=== PATIENT | female | born 1970 | race Caucasian/White ===

== ENCOUNTER 2019-01-25 14:19 | Outpatient (CLI) | payer MEDICARE, MEDICAID ==
--- NOTE | 2019-01-25 16:07 | MMO ---
Bilateral MAMMO Bilat Diag DDI+FAZAL. CLINICAL HISTORY: Patient is 48 years old and is seen for diagnostic exam and lump or thickening in the right breast at 6 o'clock. The patient has the following family history of breast cancer: mother. The patient has no personal history of cancer. VIEWS: The views performed were: bilateral craniocaudal with tomosynthesis; bilateral mediolateral oblique with tomosynthesis; and bilateral mediolateral with tomosynthesis. FILMS COMPARED: The present examination has been compared to a prior imaging study performed at [facility] on 01/25/2019. MAMMOGRAM FINDINGS: The breasts are heterogeneously dense, which could obscure a lesion on mammography. There is a focal asymmetry with spiculated margins seen in the right breast at 6 o'clock. This corresponds to the region of palpable concern. In the left breast, there are no suspicious masses, calcifications or areas of architectural distortion. IMPRESSION: FOCAL ASYMMETRY IN THE RIGHT BREAST IS SUSPICIOUS. AN ULTRASOUND-GUIDED BREAST BIOPSY IS RECOMMENDED. RESULTS AND RECOMMENDATIONS DISCUSSED WITH THE PATIENT AND QUESTIONS ANSWERED. THE RESULTS OF THIS EXAM WERE SENT TO THE PATIENT. ACR BI-RADS Category 4 - Suspicious abnormality - biopsy should be considered MAMMOGRAPHY NOTE: 1. A negative mammogram report should not delay a biopsy if a dominant of clinically suspicious mass is present. 2. Approximately 10% to 15% of breast cancers are not detected by mammography. 3. Adenosis and dense breasts may obscure an underlying neoplasm. Reported by: MIRNA DRAKE MD Electonically Signed: [id number]
--- NOTE | 2019-01-25 16:14 | ULT ---
LIMITED RIGHT BREAST ULTRASOUND: 01/25/19 PROVIDED CLINICAL HISTORY: Right breast palpable abnormality. FINDINGS: Limited sonographic interrogation of the 5 o'clock position of the right breast in the region of pal pable concern was performed. There is an angulated, irregular hypoechoic mass with associated shadowi ng measuring approximately 9 mm in greatest dimension. IMPRESSION: BI-RADS 4: Suspicious Abnormality - Biopsy Should Be Considered Usually requires biopsy. Ultrasound guided biopsy is recommended. Results and recommendations discussed with the patient and q uestions answered. POS: OFF
== END 2019-01-25 14:20 | disposition home or self-care (01) ==
LOC: BICMAMMO 14:19
PROVIDERS: ATTEND Family Medicine
DX: N63.0 Unspecified lump in unspecified breast (principal); Z80.3 Family history of malignant neoplasm of breast
CPT/HCPCS: 76642; 77066; G0279

== ENCOUNTER → 2019-01-29 | Day surgery (SDC) | payer MEDICARE, MEDICAID ==
--- NOTE | 2019-01-29 13:42 | MMO ---
Right Breast MAMMO Unilat Diag DDI RT. CLINICAL HISTORY: Patient is 48 years old and is seen for breast biopsy. The patient has the following family history of breast cancer: mother. The patient has no personal history of cancer. VIEWS: The views performed were: right craniocaudal and right mediolateral oblique. FILMS COMPARED: The present examination has been compared to a prior imaging study performed at [facility] on 01/25/2019. MAMMOGRAM FINDINGS: The breast is heterogeneously dense, which could obscure a lesion on mammography. There is a biopsy clip seen in the right breast. This is adjacent to the posterior aspcect of the distortion. IMPRESSION: BIOPSY CLIP IN THE RIGHT BREAST IS CONFIRMED UTILIZING POST PROCEDURE MAMMOGRAM. THE RESULTS OF THIS EXAM WERE SENT TO THE PATIENT. MAMMOGRAPHY NOTE: 1. A negative mammogram report should not delay a biopsy if a dominant of clinically suspicious mass is present. 2. Approximately 10% to 15% of breast cancers are not detected by mammography. 3. Adenosis and dense breasts may obscure an underlying neoplasm. Reported by: MIRNA DRAKE MD Electonically Signed: [id number]
--- NOTE | 2019-01-29 14:31 | ULT ---
ULTRASOUND GUIDED RIGHT BREAST BIOPSY: Date; 01/29/19 PROVIDED CLINICAL HISTORY: Right breast mass. FINDINGS: Correlation is made with mammogram and ultrasound performed 01/25/19. Informed consent was obtained from the patient. Sonography of the region of mammographic and sonograp hic concern was performed. In addition to the previously described focal area of hypoechoic shadowing mass at the 5 o'clock position, today's ultrasound also demonstrates abnormal diminished echogenicit y extending in a radial fashion from this lesion towards the nipple. This corresponds to architectura l distortion in this region mammographically that extends towards the nipple. The area overlying this 5 o'clock breast lesion was prepped and draped in the usual sterile manner. T he soft tissues were infiltrated with 1% buffered lidocaine. Under continuous sonographic guidance, f mckenzie core samples were obtained through the mass. Subsequently, real-time continuous sonographic ashli nce was utilized to deploy a biopsy site marker adjacent to the mass. Nordman were withdrawn and hemostasis achieved. No immediate complications. Post biopsy mammograms de monstrate the clip at the posterior aspects of the mammographically apparent distortion. IMPRESSION: 1. Technically successful ultrasound guided right breast biopsy and clip placement. 2. Additional sonographic abnormality is demonstrated on today's study to extend from the right 5 o' clock focal breast mass in a linear, radial manner towards the nipple, that likely reflects extension of tumor. Correlation with breast MRI may be useful to more clearly delineate extent of disease. POS: OFF
== END ==
LOC: BICULT 12:34
PROVIDERS: ATTEND Family Medicine
DX: C50.311 Malignant neoplasm of lower-inner quadrant of right female breast (principal)
CPT/HCPCS: 19083; 88305; 88341; 88342

== ENCOUNTER 2019-03-14 07:56 | Inpatient (IN) | payer MEDICARE, MEDICAID ==
[2019-03-13 10:59] VITALS: BMI 38.1
--- NOTE | 2019-03-14 09:07 | NM ---
NM Lymphoscintigraphy History: Breast cancer Comparison: Mammogram January 2019 Findings: Patient was brought to the nuclear medicine suite. All questions were answered. The patient's right breast was prepped and draped in normal sterile fashion. A total of 4 aliquots of 0.423 mCi technetium 99m filter sulfur colloid was instilled into the subcutaneous soft tissues around the areola. There is greater tracer uptake in the right axilla. Impression: Radiotracer uptake within the right axilla.
[2019-03-14 09:39] LABS: #Basophils 0.1 thou/uL (0.0-0.2); #Eosinphils 0.2 thou/uL (0.0-0.7); #Lymphocytes 4.3 thou/uL (1.20-3.40); #Monocytes 0.8 thou/uL (0.11-0.59); #Neutrophils 11.1 thou/uL (1.40-6.50); %Basophils 0.4 % (0.0-1.0); %Eosinophils 1.4 % (0.0-10.0); %Lymphocytes 26.3 % (21.0-51.0); %Monocytes 4.5 % (0.0-10.0); %Neutrophils 67.4 % (42.0-75.0); Hemoglobin 13.1 g/dL (12.0-16.0); Mean Corpuscular HGB CONC 34.5 g/dL (32.0-36.0); Mean Corpuscular Hemoglobin 28.7 pg (27.0-31.0); Mean Corpuscular Volume 83.2 fL (78.0-98.0); Mean Platelet Volume 7.7 fL (7.4-10.4); Platelet Count 352 thou/uL (130-400); RBC Distribution Width 12.3 % (11.5-14.5); Red Blood Cell (RBC) Count 4.56 mill/uL (4.20-5.40); White Blood Cell (WBC) Count 16.5 thou/uL (4.8-10.8)
[2019-03-14 09:48] LABS: BHCG - Serum Negative (NEGATIVE)
[2019-03-14 09:49] LABS: Pregs Control Bar Appear? YES (CONTROL BAR)
[2019-03-14 09:50] LABS: Pregs Control Background? CLEAR/WHITE (CLR/WHITE)
[2019-03-14 10:00] LABS: Anion Gap 14 mmol/L (10-20); BUN (Urea Nitrogen) 23 mg/dL (9.8-20.1); Calc. Creatinine Clearance 104 mL/min (70-130); Calcium 9.4 mg/dL (7.8-10.44); Carbon Dioxide 24 mmol/L (22-29); Chloride 96 mmol/L (98-107); Estimated GFR-MDRD 52; Glucose 231 mg/dL (70-105); Potassium 4.4 mmol/L (3.5-5.1); Sodium 130 mmol/L (136-145)
[2019-03-14] MEDS ORDERED: Bupivacaine/Epinephrine 0.25% 30 ML VIAL ONE (10:04)
[2019-03-14] MEDS ORDERED: Isosulfan Blue 50 MG/5 ML VIAL ONE (10:04)
[2019-03-14] MEDS ORDERED: Fentanyl 100 MCG/2 ML VIAL ONE ×2 (10:17→12:36)
[2019-03-14] MEDS ORDERED: HYDROmorphone 0.5 MG/0.5 ML SYRINGE ONE (10:17)
[2019-03-14] MEDS ORDERED: Promethazine HCl 25 MG/ML VIAL ONE ×2 (10:17→15:56)
[2019-03-14] MEDS ORDERED: Ketorolac Tromethamine 30 MG/ML VIAL ONE (11:56)
[2019-03-14] MEDS ORDERED: PHENYLEPHRINE-NS 100 MCG/ML 10 ML SYRINGE ONE (11:56)
[2019-03-14] MEDS ORDERED: PROPOFOL 200 MG/20 ML VIAL ONE (11:56)
[2019-03-14] MEDS ORDERED: ePHEDrine 50 MG/ML VIAL ONE (11:56)
[2019-03-14] MEDS ORDERED: Lidocaine 1% PF 5 ML VIAL ONE (11:56)
[2019-03-14] MEDS ORDERED: Ondansetron HCl/PF 4 MG/2 ML Vial IVP PRN (15:50)
[2019-03-14] MEDS ORDERED: Promethazine HCl 25 MG/ML VIAL SLOW IVP PRN (15:50)
[2019-03-14] MEDS ORDERED: HYDROmorphone 2 MG/ML VIAL SLOW IVP PRN (15:50)
[2019-03-14] MEDS ORDERED: Promethazine HCl 25 MG/ML VIAL IM PRN (15:50)
[2019-03-14] MEDS ORDERED: HYDROcodone/Acetaminophen 7.5/325 mg Tablet PO PRN (16:35)
[2019-03-14] MEDS ORDERED: Metoclopramide HCl 10 MG/2 ML VIAL IVP PRN (16:36)
[2019-03-14] MEDS ORDERED: Fentanyl 100 MCG/2 ML VIAL SLOW IVP PRN ×2 (16:36→18:46)
[2019-03-14] MEDS ORDERED: traMADol HCl 50 MG TAB PO PRN (16:36)
[2019-03-14] MEDS: Ketorolac Tromethamine 30 MG/ML VIAL IVP SCH ×2 (19:01→23:03)
[2019-03-14] MEDS: traMADol HCl 50 MG TAB PO SCH (19:55)
[2019-03-14] MEDS: ALPRAZolam 0.5 MG TAB PO SCH (19:57)
[2019-03-14] MEDS: Gabapentin 300 MG CAP PO SCH (19:57)
[2019-03-14] MEDS ORDERED: Insulin Glargine 95 UNITS in Pre-Filled Syringe 1 EACH SC SCH (21:00)
[2019-03-14] MEDS: Ondansetron PF 4 MG/2 ML Vial IVP PRN (23:02)
[2019-03-14] MEDS: Acetaminophen 1,000 MG in Premix Bag 1 BAG IVPB PRN (23:14)
[2019-03-14] MEDS: Fentanyl 100 MCG/2 ML VIAL SLOW IVP PRN (23:57)
[2019-03-15] MEDS ORDERED: Dextrose 5% in Water 1,000 ML IV PRN ×2 (01:34→14:42)
[2019-03-15] MEDS ORDERED: Dextrose 50% Abboject 50 ML SYRINGE IVP PRN (01:34)
[2019-03-15] MEDS: HumaLOG 300 UNITS/3 ML VIAL SC PRN ×2 (01:38→12:36)
[2019-03-15] MEDS: Fentanyl 100 MCG/2 ML VIAL SLOW IVP PRN ×3 (04:25→17:24)
[2019-03-15] MEDS: HYDROcodone/Acetaminophen 7.5/325 mg Tablet PO PRN ×3 (04:26→15:54)
[2019-03-15] MEDS: Ketorolac Tromethamine 30 MG/ML VIAL IVP SCH ×4 (05:07→20:41)
[2019-03-15] MEDS: Levothyroxine Sodium 50 MCG TAB PO SCH (05:33)
[2019-03-15] MEDS ORDERED: HumaLOG 300 UNITS/3 ML VIAL SC SCH (06:45)
[2019-03-15] MEDS: ALPRAZolam 0.5 MG TAB PO SCH ×3 (08:29→20:38)
[2019-03-15] MEDS: Furosemide 20 MG TAB PO SCH (08:29)
[2019-03-15] MEDS: traMADol HCl 50 MG TAB PO SCH ×3 (08:30→20:39)
[2019-03-15] MEDS: Ondansetron PF 4 MG/2 ML Vial IVP PRN (08:33)
[2019-03-15] MEDS: Gabapentin 300 MG CAP PO SCH ×3 (08:33→20:38)
[2019-03-15] MEDS: Lisinopril/Hydrochlorothiazide 20 mg/12.5 mg Tablet PO SCH (08:34)
[2019-03-15] MEDS: Acetaminophen 1,000 MG in Premix Bag 1 BAG IVPB PRN (08:36)
[2019-03-15] MEDS ORDERED: Promethazine HCl 12.5 MG in Sodium Chloride 0.9% 50 ML IVPB PRN (10:22)
--- NOTE | 2019-03-15 11:13 | PDOC.GSPN ---
Surgery Progress Note: Subj - Subjective Narrative: Patient is feeling bad this morning. She has persistent nausea and hasn't been able to sleep much because of pain. Patient is afebrile. Vital signs are okay but blood sugars have been in the 300s and 400s despite giving her usual long-acting insulin last night and putting her on sliding scale. Chest wall is flat and MIKEL drainage is serosanguineous without clots. Assessment/plan: Status post right modified radical mastectomy, with postoperative pain nausea and hyperglycemia. I have asked the inpatient hospitalist service to see her for her hyperglycemia. I suspect that she is poorly controlled at baseline. I don't feel that she is ready for discharge since she is not really able to tolerate by mouth due to her nausea. She had told her anesthesiologist that she doesn't tolerate Phenergan, but she tells me that she is able to take Phenergan as long she doesn't take morphine with it. When she took them both together she became very sedated. From a surgical standpoint she is doing well. MIKEL output is moderate and clearing in her chest wall is flat. I will ask occupational therapy to come by to drain her on postmastectomy exercises. She has been walking in the room but I encouraged her to walk in the recinos and I ordered the walking program to help her further. Surgery Progress Note: Obj - Vital signs Vital signs: Vital Signs - Most Recent Temp Pulse Resp BP Pulse Ox 98.8 F 108 H 16 135/75 96 03/15/19 04:15 03/15/19 08:34 03/15/19 04:15 03/15/19 08:34 03/15/19 07:45 Surgery Progress Note: Results - Labs Result Diagrams: 03/14/19 09:31 03/14/19 09:31 Lab results: Laboratory Results - last 24 hr 03/14/19 03/15/19 03/15/19 19:57 01:21 05:44 POC Glucose 338 H 449 H 433 H
[2019-03-15] MEDS: Promethazine HCl 25 MG/ML VIAL IM/IV PRN (12:40)
--- NOTE | 2019-03-15 14:46 | PDOC.HOSPP ---
- Subjective Encounter Date: 03/15/19 Encounter Time: 13:00 Subjective: c/o pain in her right chest is a bit lethargic but fully oriented is amb in room, at bedside - Objective Vital Signs & Weight: Vital Signs (12 hours) Temp Pulse Resp BP BP Pulse Ox 03/15/19 08:34 108 H 135/75 03/15/19 07:45 96 03/15/19 07:40 97.8 F 108 H 16 134/75 96 03/15/19 04:15 98.8 F 97 16 120/71 95 Weight Weight 240 lb I&O: 03/14/19 03/15/19 03/16/19 06:59 06:59 06:59 Intake Total 1000 360 Output Total 175 55 Balance 825 305 Result Diagrams: 03/14/19 09:31 03/14/19 09:31 Additional Labs: Accuchecks 03/15/19 03/15/19 03/15/19 11:53 05:44 01:21 POC Glucose 426 H 433 H 449 H 03/14/19 03/14/19 19:57 17:58 POC Glucose 338 H 312 H Hospitalist ROS - Medication Medications: Active Medications Generic Name Dose Route Start Last Admin Trade Name Freq PRN Reason Stop Dose Admin Hydrocodone Bitart/Acetaminophen 1 tab 03/14/19 19:27 03/15/19 10:07 [place] 7.5/325 PO 1 tab Q4H PRN Administration Mild-Moderate Pain (1-5) Alprazolam 0.5 mg 03/14/19 21:00 03/15/19 08:29 Xanax PO 0.5 mg TID LEYLA Administration Fentanyl 50 mcg 03/14/19 19:26 03/15/19 10:08 Sublimaze SLOW IVP 50 mcg Q1H PRN Administration Mild Pain (1-3) Furosemide 20 mg 03/15/19 09:00 03/15/19 08:29 Lasix PO 20 mg DAILY LEYLA Administration Gabapentin 600 mg 03/14/19 21:00 03/15/19 08:33 Neurontin PO 600 mg TID LEYLA Administration Lisinopril/HCTZ 1 tab 03/15/19 09:00 03/15/19 08:34 Prinizide 20-12.5 PO 1 tab DAILY LEYLA Administration Acetaminophen 1,000 mg/ Device 100 mls @ 400 mls/hr 03/14/19 17:29 03/15/19 08:36 IVPB 03/15/19 17:30 100 mls Q6H PRN Administration Fever/Mild Pain Ketorolac Tromethamine 30 mg 03/14/19 18:00 03/15/19 12:10 Toradol IVP 03/19/19 18:01 Not Given Q6HR LEYLA Levothyroxine Sodium 50 mcg 03/15/19 06:00 03/15/19 05:33 Synthroid PO 50 mcg 0600 LEYLA Administration Ondansetron HCl 4 mg 03/14/19 17:29 03/15/19 08:33 Zofran IVP 4 mg Q6H PRN Administration Nausea/Vomiting Pantoprazole Sodium 40 mg 03/15/19 09:00 03/15/19 08:29 Protonix PO 40 mg DAILY LEYLA Administration Promethazine HCl 25 mg 03/15/19 10:22 03/15/19 12:40 Phenergan IM/IV 25 mg Q6H PRN Administration Nausea/Vomiting Tramadol HCl 50 mg 03/14/19 21:00 03/15/19 08:30 Ultram PO 50 mg TID LEYLA Administration - Exam General Appearance: awake alert Eye: PERRL, anicteric sclera ENT: no oropharyngeal lesions, dry oral mucosa Neck: supple, no JVD Heart: RRR, no murmur Respiratory: no wheezes, no rales Gastrointestinal: soft, non-tender, non-distended, normal bowel sounds Extremities: no cyanosis, no edema Neurological: cranial nerve grossly intact, no focal deficits Psychiatric: normal affect, A&O x 3 Hosp A/P (1) DM (diabetes mellitus), type 2, uncontrolled Code(s): E11.65 - TYPE 2 DIABETES MELLITUS WITH HYPERGLYCEMIA Status: Chronic Qualifiers: Glycemic state: with hyperglycemia Qualified Code(s): E11.65 - Type 2 diabetes mellitus with hyperglycemia (2) HTN (hypertension) Code(s): I10 - ESSENTIAL (PRIMARY) HYPERTENSION Status: Chronic Qualifiers: Hypertension type: essential hypertension Qualified Code(s): I10 - Essential (primary) hypertension (3) Obesity (BMI 30-39.9) Code(s): E66.9 - OBESITY, UNSPECIFIED Status: Chronic (4) Breast cancer Status: Acute Qualifiers: Estrogen receptor status: positive Patient sex: female Laterality: right (5) s/p right modified radical mastectomy Status: Acute (6) Hypothyroidism Code(s): E03.9 - HYPOTHYROIDISM, UNSPECIFIED Status: Chronic Qualifiers: Hypothyroidism type: unspecified Qualified Code(s): E03.9 - Hypothyroidism , unspecified - Plan increase lantus to 70u bid with aggressive humalog scale will closely monitor fingerstick trend, may have to scale it back by tomorrow evening iv hydration, is dehydrated at present encourage po intake, to ambulate in hallway as tolerated continue losartan/hctz and synthroid will f/u
[2019-03-15] MEDS ORDERED: Bisacodyl 10 MG SUPP PR PRN (14:53)
[2019-03-15] MEDS ORDERED: Polyethylene Glycol 3350 17 GM Packet PO SCH (15:00)
[2019-03-15] MEDS: Sodium Chloride 0.9% 1,000 ML IV SCH (15:14)
[2019-03-15 15:51] LABS: Bacteria/HPF None Seen HPF (None Seen); Bilirubin Negative (Negative); Blood, Urine Negative (Negative); Clarity Clear (Clear); Glucose, Urine (Dipstick) Greater than 1000 mg/dL (Negative); Leukocyte Negative Leu/uL (Negative); Nitrite Negative (Negative); Protein, Urine (Dipstick) Negative (Neg-Trace); RBC/HPF 0-3 HPF (0-3); Squamous Epithelial 0-3 HPF (0-3); Urobilinogen Normal mg/dL (Less than 2); WBC/HPF 0-3 HPF (0-3)
[2019-03-15 16:14] LABS: Urine Culture Reflex No No
[2019-03-15] MEDS: Insulin Regular 300 UNITS/3 ML VIAL SC PRN ×2 (17:18→21:19)
[2019-03-15] MEDS: Docusate 100 MG CAP PO SCH (20:38)
[2019-03-15] MEDS: Promethazine 25 MG TAB PO PRN (20:40)
[2019-03-15] MEDS: Insulin Glargine 70 UNITS in Pre-Filled Syringe 1 EACH SC SCH (21:17)
[2019-03-16] MEDS: Sodium Chloride 0.9% 1,000 ML IV SCH (00:54)
[2019-03-16] MEDS: HYDROcodone/Acetaminophen 7.5/325 mg Tablet PO PRN ×5 (00:55→21:30)
[2019-03-16] MEDS: Ketorolac Tromethamine 30 MG/ML VIAL IVP SCH (04:44)
[2019-03-16] MEDS: Levothyroxine Sodium 50 MCG TAB PO SCH (05:40)
[2019-03-16] MEDS: Insulin Regular 300 UNITS/3 ML VIAL SC PRN ×4 (05:41→21:30)
[2019-03-16] MEDS: Promethazine 25 MG TAB PO PRN ×2 (08:02→13:49)
[2019-03-16] MEDS: Polyethylene Glycol 3350 17 GM Packet PO SCH (08:02)
[2019-03-16] MEDS: Gabapentin 300 MG CAP PO SCH ×3 (08:02→21:30)
[2019-03-16] MEDS: Furosemide 20 MG TAB PO SCH (08:03)
[2019-03-16] MEDS: ALPRAZolam 0.5 MG TAB PO SCH ×3 (08:03→21:30)
[2019-03-16] MEDS: Docusate 100 MG CAP PO SCH ×2 (08:03→21:30)
[2019-03-16] MEDS: Lisinopril/Hydrochlorothiazide 20 mg/12.5 mg Tablet PO SCH (08:04)
[2019-03-16] MEDS: traMADol HCl 50 MG TAB PO SCH (08:04)
[2019-03-16 09:13] LABS: #Basophils 0.1 thou/uL (0.0-0.2); #Eosinphils 0.3 thou/uL (0.0-0.7); #Lymphocytes 4.1 thou/uL (1.20-3.40); #Monocytes 0.6 thou/uL (0.11-0.59); %Basophils 0.5 % (0.0-1.0); %Eosinophils 2.6 % (0.0-10.0); %Lymphocytes 37.2 % (21.0-51.0); %Monocytes 5.2 % (0.0-10.0); %Neutrophils 54.4 % (42.0-75.0); Hemoglobin 11.5 g/dL (12.0-16.0); Mean Corpuscular HGB CONC 33.6 g/dL (32.0-36.0); Mean Corpuscular Hemoglobin 29.2 pg (27.0-31.0); Mean Corpuscular Volume 87.1 fL (78.0-98.0); Platelet Count 303 thou/uL (130-400); RBC Distribution Width 12.5 % (11.5-14.5); Red Blood Cell (RBC) Count 3.92 mill/uL (4.20-5.40); White Blood Cell (WBC) Count 11.1 thou/uL (4.8-10.8)
[2019-03-16] MEDS: Insulin Glargine 70 UNITS in Pre-Filled Syringe 1 EACH SC SCH (09:13)
[2019-03-16 09:18] LABS: Hemoglobin A1c 9.9 % (4.0-6.0)
[2019-03-16 09:36] LABS: ALT (SGPT) 16 U/L (8-55); AST (SGOT) 15 U/L (5-34); Albumin 3.7 g/dL (3.5-5.0); Alkaline Phosphatase 101 U/L (40-150); Anion Gap 14 mmol/L (10-20); BUN (Urea Nitrogen) 20 mg/dL (9.8-20.1); Bilirubin, Total 0.3 mg/dL (0.2-1.2); Calc. Creatinine Clearance 89 mL/min (70-130); Calcium 8.6 mg/dL (7.8-10.44); Carbon Dioxide 22 mmol/L (22-29); Chloride 98 mmol/L (98-107); Estimated GFR-MDRD 44; Globulin 3.4 g/dL (2.4-3.5); Glucose 363 mg/dL (70-105); Potassium 4.1 mmol/L (3.5-5.1); Protein, Total 7.1 g/dL (6.0-8.3); Sodium 130 mmol/L (136-145)
[2019-03-16] MEDS ORDERED: Insulin Glargine 10 UNITS in Pre-Filled Syringe 1 EACH SC SCH (10:30)
--- NOTE | 2019-03-16 11:12 | PDOC.GSPN ---
Surgery Progress Note: Subj - Subjective Narrative: Patient looks much better today. She is up and walking. She states however that she had a lot of problems with pain last night and is still hurting a lot in her axilla especially. She states the pain is burning in quality. She also still complains of burning pain with urination, but urinalysis yesterday was positive only for glucose. Her blood sugars are still uncontrolled. Her hemoglobin A1c was almost 10 so this is likely acute worsening of chronically uncontrolled diabetes. She has only had one blood sugar in the 200s, all the rest have been 300 and higher. She did receive some IV fluids since the hospital is felt that she was dehydrated, but she has completed those and her IV infiltrated so this was removed. Her nausea has improved somewhat and she feels like she can drink a normal amount of fluid. Her MIKEL output was quite high especially from one of the drains, but both drains are clearing in color and are now only pale pink, and her hematocrit has only come down slightly from preoperatively. Her chest wall is flat and her dressings are clean. Vital signs are okay. Assessment/plan: Slowly improving. From a surgical standpoint she is ready for discharge, but she still has uncontrolled hyperglycemia despite increase in her long-acting insulin and aggressive sliding scale insulin. The hospitalist service is following her for this. I anticipate that this will improve, and she may be ready for discharge tomorrow. Elmer is helping with the pain, but she woke up in the middle of the night with severe pain requiring IV medications. I am writing for fentanyl patch to give her some baseline pain relief. Her pain has a significant anxiety overlay, and she is receiving her chronic anxiety medications. Dr. Yao will be rounding on the patient this weekend, but she does not have any active surgical issues. Surgery Progress Note: Obj - Vital signs Vital signs: Vital Signs - Most Recent Temp Pulse Resp BP Pulse Ox 98.3 F 99 18 129/81 95 03/16/19 08:18 03/16/19 08:18 03/16/19 08:18 03/16/19 08:18 03/16/19 08:18 Surgery Progress Note: Results - Labs Result Diagrams: 03/16/19 08:54 03/16/19 08:54 Lab results: Laboratory Results - last 24 hr 03/16/19 03/16/19 03/16/19 05:41 08:54 08:54 WBC RBC Hgb Hct MCV MCH MCHC RDW Plt Count MPV Neutrophils % Lymphocytes % Monocytes % Eosinophils % Basophils % Neutrophils # Lymphocytes # Monocytes # Eosinophils # Basophils # Sodium 130 L Potassium 4.1 Chloride 98 Carbon Dioxide 22 Anion Gap 14 BUN 20 Creatinine 1.28 H Estimated GFR (MDRD) 44 Glucose 363 H POC Glucose 296 H Hemoglobin A1c 9.9 H Calcium 8.6 Total Bilirubin 0.3 AST 15 ALT 16 Alkaline Phosphatase 101 Serum Total Protein 7.1 Albumin 3.7 Globulin 3.4 Albumin/Globulin Ratio 1.1 L 03/16/19 08:54 WBC 11.1 H RBC 3.92 L Hgb 11.5 L Hct 34.1 L MCV 87.1 MCH 29.2 MCHC 33.6 RDW 12.5 Plt Count 303 MPV 8.0 Neutrophils % 54.4 Lymphocytes % 37.2 Monocytes % 5.2 Eosinophils % 2.6 Basophils % 0.5 Neutrophils # 6.0 Lymphocytes # 4.1 H Monocytes # 0.6 H Eosinophils # 0.3 Basophils # 0.1 Sodium Potassium Chloride Carbon Dioxide Anion Gap BUN Creatinine Estimated GFR (MDRD) Glucose POC Glucose Hemoglobin A1c Calcium Total Bilirubin AST ALT Alkaline Phosphatase Serum Total Protein Albumin Globulin Albumin/Globulin Ratio
--- NOTE | 2019-03-16 14:04 | PDOC.HOSPP ---
- Subjective Encounter Date: 03/16/19 Encounter Time: 08:40 Subjective: Pt seen for followup re: DM2. Denies shortness of breath. - Objective Vital Signs & Weight: Vital Signs (12 hours) Temp Pulse Resp BP BP BP Pulse Ox 03/16/19 11:53 98.3 F 103 H 18 117/78 94 L 03/16/19 08:18 98.3 F 99 18 129/81 95 03/16/19 08:04 96 117/68 03/16/19 04:18 98.4 F 96 16 117/68 95 Weight Weight 240 lb I&O: 03/15/19 03/16/19 03/17/19 06:59 06:59 06:59 Intake Total 1000 2061 Output Total 175 1855 Balance 825 206 Result Diagrams: 03/16/19 08:54 03/16/19 08:54 Additional Labs: Accuchecks 03/16/19 03/16/19 03/15/19 11:58 05:41 21:01 POC Glucose 337 H 296 H 436 H 03/15/19 16:58 POC Glucose 470 H Labs and MARs reviewed by ri Hospitalist ROS - Review of Systems Gastrointestinal: denies: nausea, vomiting, abdominal pain, diarrhea, constipation, melena, hematochezia Genitourinary: denies: dysuria, frequency, incontinence, hematuria, retention - Medication Medications: Active Medications Generic Name Dose Route Start Last Admin Trade Name Freq PRN Reason Stop Dose Admin Hydrocodone Bitart/Acetaminophen 2 tab 03/14/19 18:48 03/16/19 10:34 [place] 7.5/325 PO 2 tab Q4H PRN Administration Moderate to Severe Pain (6-10) Hydrocodone Bitart/Acetaminophen 1 tab 03/14/19 19:27 03/15/19 10:07 [place] 7.5/325 PO 1 tab Q4H PRN Administration Mild-Moderate Pain (1-5) Alprazolam 0.5 mg 03/14/19 21:00 03/16/19 08:03 Xanax PO 0.5 mg TID LEYLA Administration Docusate Sodium 100 mg 03/15/19 21:00 03/16/19 08:03 Colace PO 100 mg BID LEYLA Administration Fentanyl 100 mcg 03/14/19 18:46 03/15/19 22:09 Sublimaze SLOW IVP 100 mcg Q1H PRN Administration Severe Pain (6-10) Fentanyl 50 mcg 03/14/19 19:26 03/15/19 17:24 Sublimaze SLOW IVP 50 mcg Q1H PRN Administration Mild Pain (1-3) Fentanyl 25 mcg 03/16/19 11:00 03/16/19 12:05 Duragesic TD 25 mcg Q3D LEYLA Administration Furosemide 20 mg 03/15/19 09:00 03/16/19 08:03 Lasix PO 20 mg DAILY LEYLA Administration Gabapentin 600 mg 03/14/19 21:00 03/16/19 08:02 Neurontin PO 600 mg TID LEYLA Administration Lisinopril/HCTZ 1 tab 03/15/19 09:00 03/16/19 08:04 Prinizide 20-12.5 PO Not Given DAILY LEYLA Insulin Human Regular 0 units 03/15/19 14:42 03/16/19 12:05 Humulin R SC 11 units .AGGRESSIVE SLIDING PRN Administration Aggressive Sliding Scale Insulin Human Regular 0 units 03/15/19 14:42 03/15/19 21:19 Humulin R SC 5 unit .BEDTIME SLIDING SC PRN Administration Bedtime Correctional Scale Levothyroxine Sodium 50 mcg 03/15/19 06:00 03/16/19 05:40 Synthroid PO 50 mcg 0600 LEYLA Administration Ondansetron HCl 4 mg 03/14/19 17:29 03/15/19 08:33 Zofran IVP 4 mg Q6H PRN Administration Nausea/Vomiting Pantoprazole Sodium 40 mg 03/15/19 09:00 03/16/19 08:03 Protonix PO 40 mg DAILY LEYLA Administration Polyethylene Glycol 17 gm 03/16/19 09:00 03/16/19 08:02 Miralax PO 17 gm DAILY LEYLA Administration Promethazine HCl 25 mg 03/15/19 10:22 03/16/19 13:49 Phenergan PO 25 mg Q6H PRN Administration Nausea/Vomiting Promethazine HCl 25 mg 03/15/19 10:22 03/15/19 12:40 Phenergan IM/IV 25 mg Q6H PRN Administration Nausea/Vomiting - Exam General - other findings: Obese Eye: anicteric sclera ENT: moist mucosa Neck: supple Heart: RRR Respiratory: CTAB Gastrointestinal: soft, non-tender Extremities: no edema Neurological: no weakness Psychiatric: normal affect, normal behavior Hosp A/P (1) DM (diabetes mellitus), type 2, uncontrolled Code(s): E11.65 - TYPE 2 DIABETES MELLITUS WITH HYPERGLYCEMIA Status: Chronic Qualifiers: Glycemic state: with hyperglycemia Qualified Code(s): E11.65 - Type 2 diabetes mellitus with hyperglycemia (2) HTN (hypertension) Code(s): I10 - ESSENTIAL (PRIMARY) HYPERTENSION Status: Chronic Qualifiers: Hypertension type: essential hypertension Qualified Code(s): I10 - Essential (primary) hypertension (3) Hypothyroidism Code(s): E03.9 - HYPOTHYROIDISM, UNSPECIFIED Status: Chronic Qualifiers: Hypothyroidism type: unspecified Qualified Code(s): E03.9 - Hypothyroidism , unspecified (4) Obesity (BMI 30-39.9) Code(s): E66.9 - OBESITY, UNSPECIFIED Status: Chronic - Plan Blood sugars still high, increased lantus to 80 units SC BIB. Continue accuchecks and insulin sliding scale. HTN controlled. Hyponatremia stable.
[2019-03-16] MEDS: traMADol HCl 50 MG TAB PO PRN (15:04)
[2019-03-16] MEDS ORDERED: Insulin Glargine 80 UNITS in Pre-Filled Syringe 1 EACH SC SCH (21:00)
[2019-03-17] MEDS: HYDROcodone/Acetaminophen 7.5/325 mg Tablet PO PRN ×5 (03:40→20:40)
[2019-03-17] MEDS: Promethazine 25 MG TAB PO PRN ×2 (03:44→16:32)
[2019-03-17] MEDS: Levothyroxine Sodium 50 MCG TAB PO SCH (05:28)
[2019-03-17] MEDS: traMADol HCl 50 MG TAB PO PRN ×2 (05:28→14:32)
[2019-03-17] MEDS: Insulin Regular 300 UNITS/3 ML VIAL SC PRN ×4 (05:36→20:33)
[2019-03-17 06:01] LABS: #Basophils 0.1 thou/uL (0.0-0.2); #Eosinphils 0.3 thou/uL (0.0-0.7); #Lymphocytes 4.2 thou/uL (1.20-3.40); #Monocytes 0.5 thou/uL (0.11-0.59); %Basophils 0.6 % (0.0-1.0); %Eosinophils 3.2 % (0.0-10.0); %Lymphocytes 46.4 % (21.0-51.0); %Neutrophils 43.8 % (42.0-75.0); Hemoglobin 11.2 g/dL (12.0-16.0); Mean Corpuscular HGB CONC 33.9 g/dL (32.0-36.0); Mean Corpuscular Hemoglobin 29.4 pg (27.0-31.0); Mean Corpuscular Volume 86.7 fL (78.0-98.0); Mean Platelet Volume 7.8 fL (7.4-10.4); Platelet Count 320 thou/uL (130-400); RBC Distribution Width 12.3 % (11.5-14.5); Red Blood Cell (RBC) Count 3.82 mill/uL (4.20-5.40); White Blood Cell (WBC) Count 9.1 thou/uL (4.8-10.8)
[2019-03-17 06:20] LABS: Anion Gap 13 mmol/L (10-20); BUN (Urea Nitrogen) 17 mg/dL (9.8-20.1); Calc. Creatinine Clearance 112 mL/min (70-130); Carbon Dioxide 25 mmol/L (22-29); Chloride 102 mmol/L (98-107); Estimated GFR-MDRD 57; Glucose 270 mg/dL (70-105); Potassium 4.8 mmol/L (3.5-5.1); Sodium 135 mmol/L (136-145)
--- NOTE | 2019-03-17 07:34 | CT ---
PRELIMINARY REPORT/[facility]/EMERGENCY AFTER HOURS PROCEDURE: PROCEDURE INFORMATION: Exam: CT Head Without Contrast Exam date and time: 03/17/2019 7:03 AM Clinical history: 49 years old, female; Injury or trauma; Initial encounter; Abrasion; Not specified; Patient HX: Fall from standing and hit their head. No loc. TECHNIQUE: Imaging protocol: Computed tomography of the head without contrast. COMPARISON: No relevant prior studies available. FINDINGS: Brain: There is no acute intracranial hemorrhage. No extra-axial fluid collection. No evidence of acu te infarct. Soria white differentiation is intact. There is no evidence of mass. There is no mass effect or midline shift. Ventricles: No ventriculomegaly. Bones/joints: No acute fracture. Sinuses: Unremarkable as visualized. No acute sinusitis. Mastoid air cells: No significant mastoid effusion. Soft tissues: Unremarkable as visualized. Vasculature: There is intracranial vascular calcification. IMPRESSION: No evidence of acute intracranial abnormality. Thank you for allowing us to participate in the care of your patient. Dictated and Authenticated by: Kristin Cervantes MD 03/17/2019 7:14 AM Central Time ([place] & [place]) FINAL REPORT: CT BRAIN: PROVIDED CLINICAL HISTORY: Head injury. COMPARISON: None. FINDINGS/IMPRESSION: Agree with the preliminary interpretation given by [facility]O. Transcribed Date/Time: 03/17/2019 7:39 AM
[2019-03-17] MEDS: Gabapentin 300 MG CAP PO SCH ×3 (08:12→20:30)
[2019-03-17] MEDS: ALPRAZolam 0.5 MG TAB PO SCH ×3 (08:12→20:31)
[2019-03-17] MEDS: Docusate 100 MG CAP PO SCH ×2 (08:12→20:31)
[2019-03-17] MEDS: Furosemide 20 MG TAB PO SCH (08:12)
[2019-03-17] MEDS: Polyethylene Glycol 3350 17 GM Packet PO SCH (08:12)
[2019-03-17] MEDS: Lisinopril/Hydrochlorothiazide 20 mg/12.5 mg Tablet PO SCH (08:13)
[2019-03-17] MEDS: Insulin Glargine 90 UNITS in Pre-Filled Syringe 1 EACH SC SCH ×2 (08:22→20:32)
--- NOTE | 2019-03-17 10:39 | PRG ---
DATE OF SERVICE: 03/17/2019 SUBJECTIVE: Postoperative mastectomy by Dr. Christina. Ms. Aguirre has minimal pain. Her drain output is down. She is complaining of numbed feet and hands. OBJECTIVE: VITAL SIGNS: Blood pressure is 137/80, pulse is 97. She is afebrile. JPs are 180 and 85 for the day. CHEST: Chest wall is dressed. LABORATORY DATA: Hemoglobin is 11. Sugar is 270 today. Creatinine 1.02. ASSESSMENT: Postoperative mastectomy. PLAN: To keep her here for tight glucose control. Job ID: [id number]
[2019-03-17] MEDS ORDERED: Magnesium Citrate 300 ML BOT PO SCH (12:30)
--- NOTE | 2019-03-17 13:32 | PDOC.HOSPP ---
- Subjective Encounter Date: 03/17/19 Encounter Time: 13:31 Subjective: Pt seen for followup re: DM type 1. Blood sugars still high. c/o right sided chest pain. Fell earlier today (mechanical fall). - Objective Vital Signs & Weight: Vital Signs (12 hours) Temp Pulse Resp BP BP BP Pulse Ox 03/17/19 11:35 99.4 F 97 18 137/80 96 03/17/19 08:13 97 137/80 03/17/19 07:35 99.4 F 94 18 137/88 98 03/17/19 03:00 98.1 F 106 H 16 157/89 H 96 Weight Weight 240 lb I&O: 03/16/19 03/17/19 03/18/19 06:59 06:59 06:59 Intake Total 2061 3090 Output Total 1855 265 Balance 206 2825 Result Diagrams: 03/17/19 05:51 03/17/19 05:51 Additional Labs: Accuchecks 03/17/19 03/17/19 03/16/19 11:38 05:34 19:52 POC Glucose 288 H 257 H 301 H 03/16/19 16:18 POC Glucose 352 H Labs and MARs reviewed by wi Hospitalist ROS - Review of Systems Cardiovascular: reports: chest pain Gastrointestinal: denies: nausea, vomiting, abdominal pain, diarrhea, constipation, melena, hematochezia Genitourinary: denies: dysuria, frequency, incontinence, hematuria, retention - Medication Medications: Active Medications Generic Name Dose Route Start Last Admin Trade Name Freq PRN Reason Stop Dose Admin Hydrocodone Bitart/Acetaminophen 2 tab 03/14/19 18:48 03/17/19 12:29 [place] 7.5/325 PO 2 tab Q4H PRN Administration Moderate to Severe Pain (6-10) Hydrocodone Bitart/Acetaminophen 1 tab 03/14/19 19:27 03/15/19 10:07 [place] 7.5/325 PO 1 tab Q4H PRN Administration Mild-Moderate Pain (1-5) Alprazolam 0.5 mg 03/14/19 21:00 03/17/19 08:12 Xanax PO 0.5 mg TID LEYLA Administration Docusate Sodium 100 mg 03/15/19 21:00 03/17/19 08:12 Colace PO 100 mg BID LEYLA Administration Fentanyl 100 mcg 03/14/19 18:46 03/15/19 22:09 Sublimaze SLOW IVP 100 mcg Q1H PRN Administration Severe Pain (6-10) Fentanyl 50 mcg 03/14/19 19:26 03/15/19 17:24 Sublimaze SLOW IVP 50 mcg Q1H PRN Administration Mild Pain (1-3) Fentanyl 25 mcg 03/16/19 11:00 03/16/19 12:05 Duragesic TD 25 mcg Q3D LEYLA Administration Furosemide 20 mg 03/15/19 09:00 03/17/19 08:12 Lasix PO 20 mg DAILY LEYLA Administration Gabapentin 600 mg 03/14/19 21:00 03/17/19 08:12 Neurontin PO 600 mg TID LEYLA Administration Lisinopril/HCTZ 1 tab 03/15/19 09:00 03/17/19 08:13 Prinizide 20-12.5 PO 1 tab DAILY LEYLA Administration Insulin Glargine 90 units/ 0.9 mls @ 0 mls/hr 03/17/19 09:00 03/17/19 08:22 Miscellaneous Medication SC 0.9 mls BID LEYLA Administration Insulin Human Regular 0 units 03/15/19 14:42 03/17/19 11:59 Humulin R SC 9 units .AGGRESSIVE SLIDING PRN Administration Aggressive Sliding Scale Insulin Human Regular 0 units 03/15/19 14:42 03/16/19 21:30 Humulin R SC 4 unit .BEDTIME SLIDING SC PRN Administration Bedtime Correctional Scale Levothyroxine Sodium 50 mcg 03/15/19 06:00 03/17/19 05:28 Synthroid PO 50 mcg 0600 LEYLA Administration Ondansetron HCl 4 mg 03/14/19 17:29 03/15/19 08:33 Zofran IVP 4 mg Q6H PRN Administration Nausea/Vomiting Pantoprazole Sodium 40 mg 03/15/19 09:00 03/17/19 08:12 Protonix PO 40 mg DAILY LEYLA Administration Polyethylene Glycol 17 gm 03/16/19 09:00 03/17/19 08:12 Miralax PO 17 gm DAILY LEYLA Administration Promethazine HCl 25 mg 03/15/19 10:22 03/17/19 03:44 Phenergan PO 25 mg Q6H PRN Administration Nausea/Vomiting Promethazine HCl 25 mg 03/15/19 10:22 03/15/19 12:40 Phenergan IM/IV 25 mg Q6H PRN Administration Nausea/Vomiting Tramadol HCl 50 mg 03/16/19 11:46 03/17/19 05:28 Ultram PO 50 mg TIDPRN PRN Administration Pain - Exam General - other findings: Obesity Eye: anicteric sclera ENT: moist mucosa Neck: supple Heart: RRR Respiratory: CTAB Gastrointestinal: soft Neurological: no weakness Psychiatric: normal affect, normal behavior Hosp A/P (1) Diabetes mellitus type 1 Status: Chronic (2) HTN (hypertension) Code(s): I10 - ESSENTIAL (PRIMARY) HYPERTENSION Status: Chronic Qualifiers: Hypertension type: essential hypertension Qualified Code(s): I10 - Essential (primary) hypertension (3) Hypothyroidism Code(s): E03.9 - HYPOTHYROIDISM, UNSPECIFIED Status: Chronic Qualifiers: Hypothyroidism type: unspecified Qualified Code(s): E03.9 - Hypothyroidism , unspecified (4) Obesity (BMI 30-39.9) Code(s): E66.9 - OBESITY, UNSPECIFIED Status: Chronic - Plan Clarified today that pt is DM1, not DM2. Blood sugars still high, increased lantus to 90 units SC BID. Continue accuchecks and insulin sliding scale. Pt will eventually need endocrinology input as outpt, may need to be considered for insulin pump. HTN controlled. Nil acute on CT brain.
[2019-03-18] MEDS: Promethazine 25 MG TAB PO PRN ×2 (00:40→12:47)
[2019-03-18] MEDS: HYDROcodone/Acetaminophen 7.5/325 mg Tablet PO PRN ×6 (00:40→22:17)
[2019-03-18] MEDS: Promethazine HCl 25 MG/ML VIAL IM/IV PRN (00:47)
[2019-03-18] MEDS: Levothyroxine Sodium 50 MCG TAB PO SCH (05:29)
[2019-03-18] MEDS: Insulin Regular 300 UNITS/3 ML VIAL SC PRN ×4 (05:36→20:06)
[2019-03-18] MEDS: traMADol HCl 50 MG TAB PO PRN (08:42)
[2019-03-18] MEDS: Lisinopril/Hydrochlorothiazide 20 mg/12.5 mg Tablet PO SCH (08:43)
[2019-03-18] MEDS: Furosemide 20 MG TAB PO SCH (08:59)
[2019-03-18] MEDS: ALPRAZolam 0.5 MG TAB PO SCH ×3 (08:59→20:03)
[2019-03-18] MEDS: Docusate 100 MG CAP PO SCH ×2 (09:00→20:02)
[2019-03-18] MEDS: Gabapentin 300 MG CAP PO SCH ×3 (09:01→20:01)
[2019-03-18] MEDS: Polyethylene Glycol 3350 17 GM Packet PO SCH (09:02)
[2019-03-18] MEDS ORDERED: valACYclovir 500 MG TAB PO SCH (10:00)
[2019-03-18] MEDS ORDERED: Insulin Glargine 100 UNITS in Pre-Filled Syringe 1 EACH SC SCH ×2 (11:00→21:00)
--- NOTE | 2019-03-18 13:09 | PDOC.GSPN ---
Surgery Progress Note: Subj - Subjective Narrative: was complaining of more right flank pain overnight. Sugars remain high. Told by medicine she probably has shingles Surgery Progress Note: Obj - Vital signs Vital signs: Vital Signs - Most Recent Temp Pulse Resp BP Pulse Ox 97.8 F 68 16 121/76 98 03/18/19 12:00 03/18/19 12:00 03/18/19 12:00 03/18/19 12:00 03/18/19 12:00 - Physical Exam General: no distress Respiratory: clear to auscultation Abdomen: soft, non tender Wound: other (Flaps viable. there is shingle appearing rask to right back) Surgery Progress Note: Results - Labs Result Diagrams: 03/17/19 05:51 03/17/19 05:51 Lab results: Laboratory Results - last 24 hr 03/18/19 03/18/19 05:36 12:12 POC Glucose 335 H 211 H Surgery Progress Note: A/P - Problem (1) Breast cancer Current Visit: Yes Status: Acute Qualifiers: Estrogen receptor status: positive Patient sex: female Laterality: right - Plan Plan: POD 3 mastectomy -Medicine to treat shingles -Wrap loosened. Was hurting the area of shingles -Home when accuchecks improve
--- NOTE | 2019-03-18 14:21 | PDOC.HOSPP ---
- Subjective Encounter Date: 03/18/19 Encounter Time: 08:00 Subjective: Pt seen for followup re: herpes zoster. c/o R flank pain. - Objective Vital Signs & Weight: Vital Signs (12 hours) Temp Pulse Resp BP BP Pulse Ox 03/18/19 12:00 97.8 F 68 16 121/76 98 03/18/19 08:43 87 119/67 03/18/19 08:15 97 03/18/19 08:14 99.0 F 87 16 119/77 97 03/18/19 04:00 99.0 F 95 18 124/82 98 Weight Weight 240 lb I&O: 03/17/19 03/18/19 03/19/19 06:59 06:59 06:59 Intake Total 3090 2160 Output Total 265 210 Balance 2825 1950 Result Diagrams: 03/17/19 05:51 03/17/19 05:51 Additional Labs: Accuchecks 03/18/19 03/18/19 03/17/19 12:12 05:36 20:28 POC Glucose 211 H 335 H 340 H 03/17/19 16:38 POC Glucose 238 H Labs and MARs reviewed by hi Hospitalist ROS - Review of Systems Cardiovascular: denies: chest pain, palpitations, orthopnea, paroxysmal noc. dyspnea, edema, light headedness Gastrointestinal: reports: abdominal pain. denies: nausea, vomiting, diarrhea, constipation, melena, hematochezia - Medication Medications: Active Medications Generic Name Dose Route Start Last Admin Trade Name Freq PRN Reason Stop Dose Admin Hydrocodone Bitart/Acetaminophen 2 tab 03/14/19 18:48 03/18/19 13:59 [place] 7.5/325 PO 2 tab Q4H PRN Administration Moderate to Severe Pain (6-10) Hydrocodone Bitart/Acetaminophen 1 tab 03/14/19 19:27 03/15/19 10:07 [place] 7.5/325 PO 1 tab Q4H PRN Administration Mild-Moderate Pain (1-5) Alprazolam 0.5 mg 03/14/19 21:00 03/18/19 08:59 Xanax PO 0.5 mg TID LEYLA Administration Docusate Sodium 100 mg 03/15/19 21:00 03/18/19 09:00 Colace PO 100 mg BID LEYLA Administration Fentanyl 100 mcg 03/14/19 18:46 03/15/19 22:09 Sublimaze SLOW IVP 100 mcg Q1H PRN Administration Severe Pain (6-10) Fentanyl 50 mcg 03/14/19 19:26 03/15/19 17:24 Sublimaze SLOW IVP 50 mcg Q1H PRN Administration Mild Pain (1-3) Fentanyl 25 mcg 03/16/19 11:00 03/16/19 12:05 Duragesic TD 25 mcg Q3D LEYLA Administration Furosemide 20 mg 03/15/19 09:00 03/18/19 08:59 Lasix PO 20 mg DAILY LEYLA Administration Gabapentin 600 mg 03/14/19 21:00 03/18/19 09:01 Neurontin PO 600 mg TID LEYLA Administration Lisinopril/HCTZ 1 tab 03/15/19 09:00 03/18/19 08:43 Prinizide 20-12.5 PO 1 tab DAILY LEYLA Administration Insulin Human Regular 0 units 03/15/19 14:42 03/18/19 12:43 Humulin R SC 6 units .AGGRESSIVE SLIDING PRN Administration Aggressive Sliding Scale Insulin Human Regular 0 units 03/15/19 14:42 03/17/19 20:33 Humulin R SC 4 unit .BEDTIME SLIDING SC PRN Administration Bedtime Correctional Scale Levothyroxine Sodium 50 mcg 03/15/19 06:00 03/18/19 05:29 Synthroid PO 50 mcg 0600 LEYLA Administration Ondansetron HCl 4 mg 03/14/19 17:29 03/15/19 08:33 Zofran IVP 4 mg Q6H PRN Administration Nausea/Vomiting Pantoprazole Sodium 40 mg 03/15/19 09:00 03/18/19 08:43 Protonix PO 40 mg DAILY LEYLA Administration Polyethylene Glycol 17 gm 03/16/19 09:00 03/18/19 09:02 Miralax PO 17 gm DAILY LEYLA Administration Promethazine HCl 25 mg 03/15/19 10:22 03/18/19 12:47 Phenergan PO 25 mg Q6H PRN Administration Nausea/Vomiting Promethazine HCl 25 mg 03/15/19 10:22 03/18/19 00:47 Phenergan IM/IV 25 mg Q6H PRN Administration Nausea/Vomiting Tramadol HCl 50 mg 03/16/19 11:46 03/18/19 08:42 Ultram PO 50 mg TIDPRN PRN Administration Pain - Exam General - other findings: Obese Eye: anicteric sclera ENT: no oropharyngeal lesions Neck: supple Heart: RRR Respiratory: CTAB Gastrointestinal: soft Skin - other findings: H. zoster R flank Neurological: no weakness Psychiatric: normal affect, normal behavior Hosp A/P (1) Herpes zoster Code(s): B02.9 - ZOSTER WITHOUT COMPLICATIONS Status: Acute (2) Diabetes mellitus type 1 Status: Chronic (3) HTN (hypertension) Code(s): I10 - ESSENTIAL (PRIMARY) HYPERTENSION Status: Chronic Qualifiers: Hypertension type: essential hypertension Qualified Code(s): I10 - Essential (primary) hypertension (4) Hypothyroidism Code(s): E03.9 - HYPOTHYROIDISM, UNSPECIFIED Status: Chronic Qualifiers: Hypothyroidism type: unspecified Qualified Code(s): E03.9 - Hypothyroidism , unspecified (5) Obesity (BMI 30-39.9) Code(s): E66.9 - OBESITY, UNSPECIFIED Status: Chronic - Plan out of bed/ambulate Started on valacyclovir 1 gm TID. Blood sugars still high, increased lantus to 100 units SC BID. HTN controlled.
[2019-03-18] MEDS: valACYclovir 500 MG TAB PO SCH ×2 (16:28→20:02)
[2019-03-18] MEDS ORDERED: diphenhydrAMINE 25 MG CAP PO PRN (19:54)
[2019-03-19] MEDS: HYDROcodone/Acetaminophen 7.5/325 mg Tablet PO PRN ×3 (02:17→10:37)
[2019-03-19] MEDS: Promethazine HCl 25 MG/ML VIAL IM/IV PRN (03:58)
[2019-03-19] MEDS: Levothyroxine Sodium 50 MCG TAB PO SCH (06:21)
[2019-03-19] MEDS: Insulin Regular 300 UNITS/3 ML VIAL SC PRN ×2 (06:26→12:28)
[2019-03-19] MEDS ORDERED: PRE FILLED SC SCH (09:00)
[2019-03-19] MEDS ORDERED: INSULIN GLARGINE SC SCH (09:00)
[2019-03-19] MEDS: Gabapentin 300 MG CAP PO SCH (09:08)
[2019-03-19] MEDS: ALPRAZolam 0.5 MG TAB PO SCH (09:08)
[2019-03-19] MEDS: Furosemide 20 MG TAB PO SCH (09:08)
[2019-03-19] MEDS: Polyethylene Glycol 3350 17 GM Packet PO SCH (09:09)
[2019-03-19] MEDS: valACYclovir 500 MG TAB PO SCH (09:09)
[2019-03-19] MEDS: Lisinopril/Hydrochlorothiazide 20 mg/12.5 mg Tablet PO SCH (09:09)
[2019-03-19] MEDS: Docusate 100 MG CAP PO SCH (09:09)
[2019-03-19 11:33] VITALS: BP 154/79; TEMP 99.2
[2019-03-19] MEDS: Promethazine 25 MG TAB PO PRN (12:27)
--- NOTE | 2019-03-19 13:59 | PDOC.EVN ---
Event Note - Event Note Event Note: Pt seen. Continues to have high blood sugars. Physical exam stable. Increased insulin dose to 110 units BID. Left prescription for Tresiba 110 units BID and glucometer supplies. Also left prescription for valacyclovir. Advised pt to followup with PCP re: diabetes management and possible referral to operations research engineer.
--- NOTE | 2019-03-23 10:36 | PDOC.OP ---
Operative Note - Operative Note Operative Note: PROCEDURE: Right modified radical mastectomy and sentinel lymph node biopsy SURGEON: Isela Christina M.D. DATE: 03/14/2019 PREOPERATIVE DIAGNOSIS: Right breast cancer POSTOPERATIVE DIAGNOSIS: Right breast cancer with positive sentinel lymph nodes HISTORY: Patient is a 49-year-old woman with right breast cancer and a clinically negative axilla. She is strongly opposed to radiation therapy and has refused to consider this, so mastectomy was recommended and the patient ultimately decided to proceed with this. [place] lymph node biopsy was recommended, with the understanding that we would proceed with axillary dissection if any sentinel lymph nodes were positive due to her refusal to consider radiation therapy. PROCEDURE IN DETAIL: After informed consent was obtained the patient was taken to the operating room and placed in the supine position. General anesthesia was administered and the breast was prepped with alcohol and lymphazurin injected subdermally behind the nipple. The breast was massaged for 5 minutes, and then the patient was positioned, prepped and draped. Local anesthesia was infused to the lower edge of the hairbearing skin of the axilla. The skin was incised and dissection carried down to the area of highest activity by neoprobe. 4 lymph nodes with increased activity were identified and excised and target counts performed. The first one had a target count of 365 and was blue in color. The second one had a target count of 60 and was also blue in color. 2 deeper lymph nodes were then identified with increased counts and these were also excised. The first had a count of 1421 and was slightly blue. The second had a count of 531 and was not blue although blue lymphatics were seen approaching it. None of the nodes were hard to palpation although the third and fourth lymph nodes were slightly enlarged. The axilla was examined and palpated and no other palpable abnormal nodes nor areas of increased activity were found. The wound was irrigated and hemostasis verified. Additional local anesthesia was infused for postoperative pain control and the subcutaneous tissues were reapproximated with 3-0 Monocryl suture and the skin closed with 4-0 Monocryl suture. Attention was then turned to the mastectomy. The mass was located in the lower breast and an incision was marked on the breast centered around the mass. This was inferior to the axillary incision but was planned so that it could be adjusted as the surgery proceeded to be shifted upward laterally toward the axillary incision if the sentinel lymph nodes came back positive. Dissection was started medially and flaps raised superiorly and inferiorly and as this dissection was carried out laterally the pathologist called with positive touch preps on 2 of the 4 sentinel lymph nodes, so the incision was adjusted laterally to extend to the axillary incision for full axillary dissection. Flaps were created medially to the level of the edge of the sternum, superiorly to the clavicle and inferiorly to the upper edge of the rectus sheath. The breast tissue was excised off of the pectoralis muscle including the underlying pectoralis fascia with the specimen. As the axilla was approached, dissection was carried down through the subcutaneous tissues to the true axilla. The axillary vein was identified superiorly and the axillary contents swept off of the chest wall inferiorly identifying the long thoracic nerve. The thoracodorsal vein was identified and the thoracodorsal nerve identified in close proximity to this. The long thoracic nerve and the thoracodorsal nerve were gently stimulated and both confirmed to stimulate the respective muscles of the anterior serratus and latissimus dorsi. All of the lymph node bearing tissues between the long thoracic nerve, thoracodorsal nerve , and axillary vein were dissected free and excised in continuity with the breast. All identified venous and lymphatic tissue supplying this area were clipped to minimize drainage. Specimen was marked for pathology and passed from the field. The wound was irrigated and hemostasis obtained using Bovie electrocautery and clips. 2 MIKEL drains were placed, one to the axilla and one to the pectoral flap and both were secured with sutures. The subcutaneous tissues were reapproximated with 3-0 Vicryl suture and the skin was closed with a running 4-0 subcuticular Monocryl suture. Dermabond dressings were placed at the chest wall incision and drain sponges and Tegaderm were placed to the MIKEL exit sites. The patient was extubated and taken to recovery in good condition. Estimated blood loss is minimal. There were no complications. Specimen is right breast and axillary contents, with 4 sentinel lymph nodes sent separately
== END 2019-03-19 13:24 | disposition home or self-care (01) | DRG 580 ==
LOC: SDC 07:56 → SURG A 17:15 → OBSVTOIN 17:28
PROVIDERS: ADMIT Surgery; ATTEND Surgery
PROC: 0HTT0ZZ Resection of Right Breast, Open Approach (ICD-10-PCS; principal; 2019-03-14)
PROC: 07B50ZX Excision of Right Axillary Lymphatic, Open Approach, Diagnostic (ICD-10-PCS; 2019-03-14)
DX: C50.919 Malignant neoplasm of unspecified site of unspecified female breast (principal); E87.1 Hypo-osmolality and hyponatremia; C77.3 Secondary and unspecified malignant neoplasm of axilla and upper limb lymph nodes; B02.9 Zoster without complications; I10 Essential (primary) hypertension; E86.0 Dehydration; E03.9 Hypothyroidism, unspecified; E66.9 Obesity, unspecified; E78.00 Pure hypercholesterolemia, unspecified; E10.65 Type 1 diabetes mellitus with hyperglycemia; G89.18 Other acute postprocedural pain; Z68.30 Body mass index [BMI] 30.0-30.9, adult; Z90.49 Acquired absence of other specified parts of digestive tract; Z79.4 Long term (current) use of insulin; R11.0 Nausea
CPT/HCPCS: 36415; 36416; 70450; 78195; 80048; 80053; 81001; 83036; 84703; 85025; 88307; 88309; 88331; 88333; 88334; 88342; 93005; 93010; A9541; J0131; J0690; J1170; J1815; J1885; J2001; J2405; J2550; J2704; J2765; J3010; J3490; Q0163; Q0169; Q9968

== ENCOUNTER 2019-03-22 06:34 | Emergency (ER) | payer MEDICARE, MEDICAID ==
[2019-03-22 07:11] LABS: #Basophils 0.1 thou/uL (0.0-0.2); #Eosinphils 0.3 thou/uL (0.0-0.7); #Lymphocytes 3.7 thou/uL (1.20-3.40); #Monocytes 0.6 thou/uL (0.11-0.59); #Neutrophils 4.4 thou/uL (1.40-6.50); %Basophils 0.8 % (0.0-1.0); %Eosinophils 3.3 % (0.0-10.0); %Lymphocytes 40.6 % (21.0-51.0); %Monocytes 6.6 % (0.0-10.0); %Neutrophils 48.8 % (42.0-75.0); Hemoglobin 10.6 g/dL (12.0-16.0); Mean Corpuscular HGB CONC 33.8 g/dL (32.0-36.0); Mean Corpuscular Hemoglobin 28.4 pg (27.0-31.0); Mean Corpuscular Volume 84.2 fL (78.0-98.0); Mean Platelet Volume 7.7 fL (7.4-10.4); Platelet Count 374 thou/uL (130-400); RBC Distribution Width 12.8 % (11.5-14.5); Red Blood Cell (RBC) Count 3.74 mill/uL (4.20-5.40)
[2019-03-22 07:34] LABS: ALT (SGPT) 28 U/L (8-55); AST (SGOT) 23 U/L (5-34); Albumin 3.4 g/dL (3.5-5.0); Alkaline Phosphatase 105 U/L (40-110); Anion Gap 16 mmol/L (10-20); BUN (Urea Nitrogen) 13 mg/dL (9.8-20.1); Bilirubin, Total 0.2 mg/dL (0.2-1.2); Calc. Creatinine Clearance 0 mL/min (70-130); Calcium 8.3 mg/dL (7.8-10.44); Carbon Dioxide 24 mmol/L (22-29); Chloride 98 mmol/L (98-107); Estimated GFR-MDRD 55; Globulin 3.3 g/dL (2.4-3.5); Glucose 360 mg/dL (70-105); Potassium 4.7 mmol/L (3.5-5.1); Protein, Total 6.7 g/dL (6.0-8.3); Sodium 133 mmol/L (136-145)
--- NOTE | 2019-03-22 08:04 | RAD ---
CHEST 1 VIEW: Date: 03/22/19 INDICATION: History of blurry vision and chest pain. COMPARISON: None. FINDINGS: There is mild cardiomegaly. There are numerous surgical clips within the right axillary region. Lungs are clear. No pleural effusion or pneumothorax evident. There is calcific tendinosis overlying the r ight proximal humerus. IMPRESSION: Cardiomegaly without evidence of cardiac decompensation. POS: [facility]
[2019-03-22] MEDS ORDERED: Morphine 4 MG/ML VIAL ONE (08:11)
[2019-03-22] MEDS ORDERED: Ondansetron PF 4 MG/2 ML Vial ONE (08:11)
--- NOTE | 2019-03-22 08:12 | ULT ---
EXAM: US Venous Doppler Rt Unilat upper extremity PROVIDED CLINICAL HISTORY: Right upper extremity pain. Patient is post recent right mastectomy. COMPARISON: None FINDINGS: Grayscale, color-flow, Doppler evaluation, and spectral analysis of the right upper extremity venous structures is performed with 2-D imaging. There is normal luminal compressibility and flow seen in the right internal jugular, axillary, and br achial veins. There is normal flow seen in the right subclavian vein. Normal lumen compressibility and flow is seen within the right radial and ulnar veins. Normal flow and lumen compressibility is seen in the right upper extremity basilic and cephalic veins . IMPRESSION: No evidence of a DVT involving the visualized deep venous structures right upper extremity.
[2019-03-22] MEDS ORDERED: Acetaminophen 500 MG TAB ONE (08:22)
[2019-03-22] MEDS ORDERED: Fentanyl 100 MCG/2 ML VIAL ONE (08:47)
--- NOTE | 2019-03-22 09:30 | ULT ---
VENOUS DUPLEX SONOGRAM RIGHT LOWER EXTREMITY: Date: 03/22/19 HISTORY: Right leg pain and edema. FINDINGS: The right common femoral vein and greater saphenous junction were evaluated along with the femoral, d eep femoral, popliteal, and posterior tibial veins. There is good color and spectral Doppler flow, co mpression, and augmentation. IMPRESSION: No sonographic evidence of deep venous thrombosis within the right lower extremity. POS: [facility]
[2019-03-22 09:54] LABS: Bilirubin Negative (Negative); Blood, Urine 2+ (Negative); Clarity Clear (Clear); Glucose, Urine (Dipstick) Greater than 1000 mg/dL (Negative); Leukocyte Negative Leu/uL (Negative); Nitrite Negative (Negative); Protein, Urine (Dipstick) 70 mg/dL (Neg-Trace); RBC/HPF Greater than 50 HPF (0-3); Squamous Epithelial 0-3 HPF (0-3); Urobilinogen Normal mg/dL (Less than 2)
[2019-03-22 09:57] LABS: Bacteria/HPF 1+ HPF (None Seen)
[2019-03-22] MEDS ORDERED: Promethazine HCl 25 MG/ML VIAL ONE (10:11)
[2019-03-22 10:33] LABS: Troponin I Less than 0.010 ng/mL (< 0.028)
--- NOTE | 2019-03-22 10:52 | CT ---
CT ANGIOGRAM THORAX WITH IV CONTRAST AND 3-D RECONSTRUCTIONS CLINICAL INDICATION: Chest pain. Recent mastectomy. COMPARISON: None FINDINGS: Pulmonary arteries: No filling defects are seen in the pulmonary arteries to suggest no pulmonary nod ule or mass is seen. A pulmonary embolus. There is mild prominence of the main pulmonary artery which is nonspecific. Aorta: The aorta is normal in caliber without evidence of an aortic dissection. Lungs: Minimal dependent bibasilar atelectasis is seen. There is no consolidation or pleural effusion identified. Mediastinum: There is no evidence of lymphadenopathy. Thyroid gland: Normal in appearance where visualized. Osseous structures: No acute process. Chest wall: Postsurgical changes related to right mastectomy are noted. There is a drainage catheter overlying the region of the right breast. Surgical clips are seen in the right axillary region. There is no fluid collection identified. Upper abdomen: Within normal limits for phase of imaging. IMPRESSION: 1. No CT evidence of a pulmonary embolus. 2. Postsurgical changes related to right mastectomy.
[2019-03-22] MEDS ORDERED: ISOVUE-370 76%-LOCM 1 ML ONE (12:07)
--- NOTE | 2019-03-30 14:17 | EKG ---
Test Reason : Blood Pressure : / mmHG Vent. Rate : 108 BPM Atrial Rate : 108 BPM P-R Int : 112 ms QRS Dur : 074 ms QT Int : 352 ms P-R-T Axes : 061 048 072 degrees QTc Int : 471 ms Sinus tachycardia Low voltage QRS No STEMI Borderline ECG Confirmed by ANGELO NETTLES DO ([id number]), black leather buffer JIM REYES ([id number]) on 03/30/2019 2:16:50 PM Referred By: Confirmed By:ANGELO NETTLES DO
== END 2019-03-22 11:34 | disposition home or self-care (01) ==
LOC: ERS 06:34
DX: G89.18 Other acute postprocedural pain (principal); R07.9 Chest pain, unspecified; I10 Essential (primary) hypertension; E10.9 Type 1 diabetes mellitus without complications; F41.9 Anxiety disorder, unspecified; F32.9 Major depressive disorder, single episode, unspecified
CPT/HCPCS: 36415; 36416; 71045; 71275; 80053; 81003; 81015; 82010; 84484; 85025; 93005; 96361; 96365; 96375; J2270; J2405; J2550; J3010; Q9966

== ENCOUNTER 2019-03-30 09:30 | Emergency (ER) | payer MEDICARE, MEDICAID ==
[2019-03-30 09:54] LABS: #Basophils 0.1 thou/uL (0.0-0.2); #Eosinphils 0.1 thou/uL (0.0-0.7); #Lymphocytes 2.9 thou/uL (1.20-3.40); #Monocytes 0.5 thou/uL (0.11-0.59); %Basophils 1.2 % (0.0-1.0); %Eosinophils 1.5 % (0.0-10.0); %Monocytes 6.9 % (0.0-10.0); %Neutrophils 52.5 % (42.0-75.0); Hemoglobin 12.2 g/dL (12.0-16.0); Mean Corpuscular HGB CONC 33.7 g/dL (32.0-36.0); Mean Corpuscular Hemoglobin 29.3 pg (27.0-31.0); Mean Corpuscular Volume 86.9 fL (78.0-98.0); Mean Platelet Volume 7.5 fL (7.4-10.4); Platelet Count 398 thou/uL (130-400); RBC Distribution Width 13.8 % (11.5-14.5); Red Blood Cell (RBC) Count 4.17 mill/uL (4.20-5.40); White Blood Cell (WBC) Count 7.6 thou/uL (4.8-10.8)
[2019-03-30 10:14] LABS: ALT (SGPT) 15 U/L (8-55); AST (SGOT) 11 U/L (5-34); Albumin 3.9 g/dL (3.5-5.0); Alkaline Phosphatase 84 U/L (40-110); Anion Gap 17 mmol/L (10-20); BUN (Urea Nitrogen) 26 mg/dL (9.8-20.1); Bilirubin, Total 0.3 mg/dL (0.2-1.2); Calc. Creatinine Clearance 0 mL/min (70-130); Calcium 9.2 mg/dL (7.8-10.44); Carbon Dioxide 23 mmol/L (22-29); Chloride 97 mmol/L (98-107); Estimated GFR-MDRD 37; Globulin 3.5 g/dL (2.4-3.5); Glucose 372 mg/dL (70-105); Potassium 4.8 mmol/L (3.5-5.1); Protein, Total 7.4 g/dL (6.0-8.3); Sodium 132 mmol/L (136-145)
[2019-03-30] MEDS ORDERED: Insulin Regular 300 UNITS/3 ML VIAL ONE (11:42)
[2019-03-30] MEDS ORDERED: Metoclopramide HCl 10 MG/2 ML VIAL ONE (11:42)
[2019-03-30] MEDS ORDERED: HYDROcodone/Acetaminophen 10/325 mg Tablet ONE (11:57)
[2019-03-30 12:22] LABS: Bacteria/HPF None Seen HPF (None Seen); Bilirubin Negative (Negative); Blood, Urine 3+ (Negative); Clarity Turbid (Clear); Glucose, Urine (Dipstick) Greater than 1000 mg/dL (Negative); Leukocyte Negative Leu/uL (Negative); Nitrite Negative (Negative); Protein, Urine (Dipstick) 10 mg/dL (Neg-Trace); RBC/HPF Greater than 50 HPF (0-3); Urobilinogen Normal mg/dL (Less than 2)
== END 2019-03-30 14:54 | disposition home or self-care (01) ==
LOC: ERS 09:30
DX: R31.9 Hematuria, unspecified (principal); T81.89XA Other complications of procedures, not elsewhere classified, initial encounter; B02.9 Zoster without complications; E10.65 Type 1 diabetes mellitus with hyperglycemia; I10 Essential (primary) hypertension; Z79.899 Other long term (current) drug therapy
CPT/HCPCS: 36415; 36416; 80053; 81003; 81015; 85025; 96361; 96374; J1815; J2765

== ENCOUNTER 2019-04-04 10:59 | Outpatient (CLI) | payer MEDICARE, MEDICAID ==
--- NOTE | 2019-04-04 13:18 | ULT ---
GALLBLADDER ULTRASOUND: HISTORY: Abdominal pain. FINDINGS: Gallbladder has a normal appearance. No evidence of gallstones. The common duct is upper normal terrell iber measured at 5-6 mm. The liver is enlarged and echogenic consistent with diffuse fatty infiltration and/or hepatic medical disease. Liver measures up to 22 cm. Visualized pancreas and right kidney appear unremarkable. IMPRESSION: 1. Hepatomegaly with abnormal liver echogenicity consistent with diffuse hepatosteatosis or medical hepatic disease. 2. No evidence of gallstones. 3. Mildly prominent common bile duct. Consider ERCP or MRCP to further evaluate. There is no evide nce of intrahepatic ductal dilatation. POS: [facility]
== END 2019-04-04 11:00 | disposition home or self-care (01) ==
LOC: ULT 10:59
PROVIDERS: ATTEND Surgery
DX: R10.31 Right lower quadrant pain (principal); R16.0 Hepatomegaly, not elsewhere classified; R93.2 Abnormal findings on diagnostic imaging of liver and biliary tract
CPT/HCPCS: 76705

== ENCOUNTER 2022-01-27 22:05 | Inpatient (IN) | payer MEDICARE, MEDICAID ==
[2022-01-27] MEDS ORDERED: Vancomycin 1 GM/200 ML BAG ONE (22:50)
[2022-01-27] MEDS ORDERED: Cefepime 2 GM VIAL ONE (22:50)
[2022-01-27 22:52] LABS: #Basophils 0.1 thou/uL (0.0-0.2); #Eosinphils 0.2 thou/uL (0.0-0.7); #Lymphocytes 3.4 thou/uL (1.20-3.40); #Monocytes 0.7 thou/uL (0.11-0.59); #Neutrophils 8.5 thou/uL (1.40-6.50); %Basophils 0.4 % (0.0-1.0); %Eosinophils 1.6 % (0.0-10.0); %Lymphocytes 26.8 % (21.0-51.0); %Monocytes 5.1 % (0.0-10.0); %Neutrophils 66.1 % (42.0-75.0); Hemoglobin 14.5 g/dL (12.0-16.0); Mean Corpuscular HGB CONC 33.5 g/dL (32.0-36.0); Mean Corpuscular Hemoglobin 27.5 pg (27.0-31.0); Mean Platelet Volume 8.9 fL (7.4-10.4); Platelet Count 348 thou/uL (130-400); RBC Distribution Width 12.9 % (11.5-14.5); Red Blood Cell (RBC) Count 5.26 mill/uL (4.20-5.40); White Blood Cell (WBC) Count 12.8 thou/uL (4.8-10.8)
[2022-01-27 23:01] LABS: BHCG - Serum Negative (NEGATIVE); Pregs Control Background? CLEAR/WHITE (CLR/WHITE); Pregs Control Bar Appear? YES (CONTROL BAR)
[2022-01-27 23:16] LABS: ALT (SGPT) 19 U/L (8-55); AST (SGOT) 13 U/L (5-34); Albumin 4.4 g/dL (3.5-5.0); Alkaline Phosphatase 112 U/L (40-110); Anion Gap 20 mmol/L (10-20); BUN (Urea Nitrogen) 18 mg/dL (9.8-20.1); Bilirubin, Total 0.5 mg/dL (0.2-1.2); CK (CPK) 56 U/L (29-168); Calc. Creatinine Clearance 0 mL/min (70-130); Calcium 10.2 mg/dL (7.8-10.44); Carbon Dioxide 24 mmol/L (22-29); Chloride 90 mmol/L (98-107); Estimated GFR 61; Globulin 4.3 g/dL (2.4-3.5); Glucose 343 mg/dL (70-105); Magnesium 1.8 mg/dL (1.6-2.6); Potassium 4.5 mmol/L (3.5-5.1); Protein, Total 8.7 g/dL (6.0-8.3); Sodium 129 mmol/L (136-145)
[2022-01-27] MEDS ORDERED: Fentanyl 100 MCG/2 ML VIAL ONE (23:35)
[2022-01-28] MEDS ORDERED: Ondansetron PF 4 MG/2 ML Vial ONE (00:35)
[2022-01-28 01:45] LABS: Lactic Acid 1.6 mmol/L (0.5-2.2)
[2022-01-28 02:35] VITALS: BMI 38.2
[2022-01-28] MEDS ORDERED: Calcium Carbonate 500 MG ChewTAB PO PRN (03:02)
[2022-01-28] MEDS ORDERED: Loperamide HCl 2 MG CAP PO PRN ×2 (03:02)
[2022-01-28] MEDS ORDERED: Dextrose 5% in Water 1,000 ML IV PRN (03:02)
[2022-01-28] MEDS ORDERED: Bisacodyl 10 MG SUPP PR PRN (03:02)
[2022-01-28] MEDS ORDERED: Senokot S 8.6-50 MG TAB PO PRN (03:02)
[2022-01-28] MEDS ORDERED: HumaLOG 300 UNITS/3 ML VIAL SC PRN (03:02)
[2022-01-28] MEDS ORDERED: Bisacodyl 5 MG TAB PO PRN (03:02)
[2022-01-28] MEDS ORDERED: Guaifenesin DM 100-10/5 ML UDCUP PO PRN (03:02)
[2022-01-28] MEDS ORDERED: Dextrose 50% Abboject 50 ML SYRINGE SLOW IVP PRN (03:02)
[2022-01-28] MEDS ORDERED: hydrALAZINE 20 MG/ML VIAL SLOW IVP PRN (03:14)
[2022-01-28] MEDS ORDERED: Acetaminophen 650 MG Suppository PR PRN (03:17)
[2022-01-28] MEDS ORDERED: Fentanyl 100 MCG/2 ML VIAL SLOW IVP SCH (03:45)
[2022-01-28] MEDS ORDERED: Clindamycin/D5W 600 mg/50 ml Premix Bag ONE ×2 (03:47→11:23)
[2022-01-28] MEDS: Clindamycin/D5W 600 MG in Premix Bag 1 BAG IVPB SCH ×3 (03:53→19:59)
[2022-01-28] MEDS: Sodium Chloride 0.9% 1,000 ML IV SCH (03:53)
[2022-01-28] MEDS ORDERED: VANCOMYCIN 1.25 GM/250 ML BAG 1.25 GM in Premix Bag 1 BAG IVPB SCH (06:00)
[2022-01-28 06:16] LABS: Bilirubin Negative (Negative); Blood, Urine Negative (Negative); Clarity Clear (Clear); Glucose, Urine (Dipstick) Greater than 1000 mg/dL (Negative); Ketone, Urine 10 mg/dL (Negative); Leukocyte Negative Leu/uL (Negative); Nitrite Negative (Negative); Protein, Urine (Dipstick) Negative (Neg-Trace); RBC/HPF None Seen HPF (0-3); Specific Gravity, Urine 1.011 (1.002-1.036); Squamous Epithelial 0-3 HPF (0-3); Urobilinogen Normal mg/dL (Less than 2); WBC/HPF 0-3 HPF (0-3)
[2022-01-28 06:25] LABS: Bacteria/HPF Rare-Few HPF (None Seen)
[2022-01-28 06:26] LABS: Urine Culture Reflex No No
[2022-01-28] MEDS: Enoxaparin Sodium 40 MG/0.4 ML SYRINGE SC SCH (07:55)
[2022-01-28] MEDS: Famotidine 20 MG TAB PO SCH ×2 (07:56→20:00)
[2022-01-28] MEDS: Famotidine/PF 20 mg/2ml Vial SLOW IVP SCH ×2 (07:57→20:03)
[2022-01-28] MEDS: VANCOMYCIN 1.25 GM/250 ML BAG 1.25 GM in Premix Bag 1 BAG IVPB SCH ×2 (08:38→21:19)
[2022-01-28] MEDS: HYDROcodone/Acetaminophen 5/325 mg Tablet PO PRN (08:49)
[2022-01-28] MEDS: Fentanyl 100 MCG/2 ML VIAL SLOW IVP PRN ×2 (11:30→19:51)
[2022-01-28 14:37] LABS: #Eosinphils 0.3 thou/uL (0.0-0.7); #Lymphocytes 3.4 thou/uL (1.20-3.40); #Monocytes 0.5 thou/uL (0.11-0.59); %Basophils 0.5 % (0.0-1.0); %Eosinophils 3.8 % (0.0-10.0); %Lymphocytes 40.8 % (21.0-51.0); %Monocytes 5.9 % (0.0-10.0); Hemoglobin 13.2 g/dL (12.0-16.0); Mean Corpuscular HGB CONC 34.1 g/dL (32.0-36.0); Mean Corpuscular Hemoglobin 28.5 pg (27.0-31.0); Mean Corpuscular Volume 83.5 fL (78.0-98.0); Mean Platelet Volume 8.8 fL (7.4-10.4); Platelet Count 290 thou/uL (130-400); RBC Distribution Width 12.8 % (11.5-14.5); Red Blood Cell (RBC) Count 4.62 mill/uL (4.20-5.40); White Blood Cell (WBC) Count 8.3 thou/uL (4.8-10.8)
[2022-01-28 14:58] LABS: Anion Gap 18 mmol/L (10-20); BUN (Urea Nitrogen) 15 mg/dL (9.8-20.1); Calc. Creatinine Clearance 110 mL/min (70-130); Calcium 9.2 mg/dL (7.8-10.44); Carbon Dioxide 21 mmol/L (22-29); Chloride 94 mmol/L (98-107); Estimated GFR 67; Glucose 407 mg/dL (70-105); Potassium 4.4 mmol/L (3.5-5.1); Sodium 129 mmol/L (136-145)
[2022-01-28] MEDS: Ondansetron ODT 4 MG TAB PO PRN (20:00)
[2022-01-28] MEDS: Acetaminophen 325 MG TAB PO PRN (20:02)
[2022-01-28] MEDS: HumaLOG 300 UNITS/3 ML VIAL SC PRN ×2 (20:08→22:24)
[2022-01-29] MEDS: Sodium Chloride 0.9% 1,000 ML IV SCH (01:26)
[2022-01-29] MEDS: Clindamycin/D5W 600 MG in Premix Bag 1 BAG IVPB SCH ×3 (03:55→20:42)
[2022-01-29] MEDS: Acetaminophen 325 MG TAB PO PRN (04:04)
[2022-01-29] MEDS: Fentanyl 100 MCG/2 ML VIAL SLOW IVP PRN ×2 (04:06→08:49)
[2022-01-29] MEDS: Ondansetron ODT 4 MG TAB PO PRN (04:12)
[2022-01-29] MEDS: HumaLOG 300 UNITS/3 ML VIAL SC PRN ×4 (05:27→20:43)
[2022-01-29] MEDS: Famotidine 20 MG TAB PO SCH ×2 (08:48→20:40)
[2022-01-29] MEDS: Enoxaparin Sodium 40 MG/0.4 ML SYRINGE SC SCH (08:48)
[2022-01-29] MEDS: VANCOMYCIN 1.25 GM/250 ML BAG 1.25 GM in Premix Bag 1 BAG IVPB SCH ×2 (08:48→23:03)
[2022-01-29] MEDS: Famotidine/PF 20 mg/2ml Vial SLOW IVP SCH ×2 (08:48→20:41)
[2022-01-29 09:44] LABS: Vancomycin, Trough 17.1 ug/mL
[2022-01-29] MEDS ORDERED: Lidocaine 1% w/Epinephrine 1:100K 20 ML VIAL FS SCH (10:30)
[2022-01-29] MEDS: HYDROcodone/Acetaminophen 5/325 mg Tablet PO PRN ×4 (11:03→23:11)
[2022-01-29] MEDS ORDERED: Magnevist 469MG/ML 20 ML VIAL ONE (11:09)
[2022-01-29] MEDS: Ondansetron PF 4 MG/2 ML Vial IVP PRN (12:14)
[2022-01-29] MEDS: traMADol HCl 50 MG TAB PO SCH (20:41)
[2022-01-29] MEDS: busPIRone HCl 10 MG TAB PO SCH (20:41)
[2022-01-29] MEDS: Atorvastatin Calcium 40 MG TAB PO SCH (20:42)
[2022-01-29] MEDS ORDERED: Non-Formulary Item 1 EACH (Insulin Degludec [Tresiba] 100 UNIT/ML Vial) SQ SCH (21:00)
[2022-01-29] MEDS ORDERED: Insulin Glargine 30 UNITS/0.3 ML VIAL SC SCH (21:00)
[2022-01-29 21:16] LABS: Vancomycin, Trough 12.8 ug/mL
[2022-01-30] MEDS: Ondansetron PF 4 MG/2 ML Vial IVP PRN ×2 (01:38→20:45)
[2022-01-30] MEDS: Clindamycin/D5W 600 MG in Premix Bag 1 BAG IVPB SCH ×3 (05:00→20:37)
[2022-01-30] MEDS: Levothyroxine Sodium 50 MCG TAB PO SCH (05:01)
[2022-01-30] MEDS: HumaLOG 300 UNITS/3 ML VIAL SC PRN ×4 (05:02→20:38)
[2022-01-30] MEDS: FLUoxetine HCl 20 MG CAP PO SCH (09:08)
[2022-01-30] MEDS: busPIRone HCl 10 MG TAB PO SCH ×2 (09:09→20:37)
[2022-01-30] MEDS: Famotidine 20 MG TAB PO SCH ×2 (09:09→20:37)
[2022-01-30] MEDS: traMADol HCl 50 MG TAB PO SCH ×3 (09:10→20:37)
[2022-01-30] MEDS: Lisinopril 10 MG TAB PO SCH (09:12)
[2022-01-30] MEDS: Famotidine/PF 20 mg/2ml Vial SLOW IVP SCH ×2 (09:13→20:37)
[2022-01-30] MEDS: Enoxaparin Sodium 40 MG/0.4 ML SYRINGE SC SCH (09:13)
[2022-01-30] MEDS: VANCOMYCIN 1.25 GM/250 ML BAG 1.25 GM in Premix Bag 1 BAG IVPB SCH ×2 (09:37→21:42)
[2022-01-30] MEDS: HYDROcodone/Acetaminophen 5/325 mg Tablet PO PRN (18:19)
[2022-01-30] MEDS: Atorvastatin Calcium 40 MG TAB PO SCH (20:37)
[2022-01-30] MEDS ORDERED: Insulin Glargine 30 UNITS/0.3 ML VIAL SC SCH (21:00)
[2022-01-31] MEDS: HYDROcodone/Acetaminophen 5/325 mg Tablet PO PRN ×2 (01:24→10:56)
[2022-01-31] MEDS: Clindamycin/D5W 600 MG in Premix Bag 1 BAG IVPB SCH ×2 (04:59→13:35)
[2022-01-31] MEDS: HumaLOG 300 UNITS/3 ML VIAL SC PRN (04:59)
[2022-01-31] MEDS: Levothyroxine Sodium 50 MCG TAB PO SCH (05:00)
[2022-01-31] MEDS: Ondansetron PF 4 MG/2 ML Vial IVP PRN ×2 (05:05→10:56)
[2022-01-31 08:56] LABS: Vancomycin, Trough 16.1 ug/mL
[2022-01-31] MEDS: traMADol HCl 50 MG TAB PO SCH (09:36)
[2022-01-31] MEDS: busPIRone HCl 10 MG TAB PO SCH (09:37)
[2022-01-31] MEDS: FLUoxetine HCl 20 MG CAP PO SCH (09:37)
[2022-01-31] MEDS: Famotidine 20 MG TAB PO SCH (09:37)
[2022-01-31] MEDS: Lisinopril 10 MG TAB PO SCH (09:37)
[2022-01-31] MEDS: Famotidine/PF 20 mg/2ml Vial SLOW IVP SCH (09:38)
[2022-01-31] MEDS: Enoxaparin Sodium 40 MG/0.4 ML SYRINGE SC SCH (09:38)
[2022-01-31 09:53] LABS: BUN (Urea Nitrogen) 16 mg/dL (9.8-20.1); Calc. Creatinine Clearance 109 mL/min (70-130); Calcium 9.8 mg/dL (7.8-10.44); Carbon Dioxide 21 mmol/L (22-29); Chloride 94 mmol/L (98-107); Estimated GFR 67; Glucose 232 mg/dL (70-105); Potassium 4.1 mmol/L (3.5-5.1)
[2022-01-31 10:11] LABS: Anion Gap 21 mmol/L (10-20); Sodium 133 mmol/L (136-145)
[2022-01-31] MEDS: VANCOMYCIN 1.25 GM/250 ML BAG 1.25 GM in Premix Bag 1 BAG IVPB SCH (10:35)
[2022-01-31 11:56] VITALS: BP 100/67; TEMP 98.2
[2022-01-31] MEDS ORDERED: Insulin Glargine 30 UNITS/0.3 ML VIAL SC SCH (21:00)
== END 2022-01-31 14:30 | disposition home health service (06) | DRG 603 ==
LOC: ERS 22:05 → T4-B 01-28 00:09
PROVIDERS: ADMIT Internal Medicine; ATTEND Internal Medicine
DX: L03.031 Cellulitis of right toe (principal); E11.621 Type 2 diabetes mellitus with foot ulcer; Z20.822 Contact with and (suspected) exposure to COVID-19; E11.65 Type 2 diabetes mellitus with hyperglycemia; I10 Essential (primary) hypertension; E03.9 Hypothyroidism, unspecified; E11.40 Type 2 diabetes mellitus with diabetic neuropathy, unspecified; I48.0 Paroxysmal atrial fibrillation; F41.9 Anxiety disorder, unspecified; F32.A Depression, unspecified; L97.519 Non-pressure chronic ulcer of other part of right foot with unspecified severity; E88.81 Metabolic syndrome and other insulin resistance; E66.01 Morbid (severe) obesity due to excess calories; S91.121A Laceration with foreign body of right great toe without damage to nail, initial encounter; W25.XXXA Contact with sharp glass, initial encounter; Z85.3 Personal history of malignant neoplasm of breast; Z90.11 Acquired absence of right breast and nipple; Z88.5 Allergy status to narcotic agent; Z68.38 Body mass index [BMI] 38.0-38.9, adult; Z90.710 Acquired absence of both cervix and uterus; Z90.89 Acquired absence of other organs; Z90.721 Acquired absence of ovaries, unilateral; Z98.890 Other specified postprocedural states; Z86.79 Personal history of other diseases of the circulatory system; Z87.09 Personal history of other diseases of the respiratory system
CPT/HCPCS: 36415; 36416; 71045; 80048; 80053; 80202; 81001; 82550; 82565; 83036; 83605; 83735; 84484; 84703; 85025; 87040; 93005; 96374; 96375; 97139; A9579; J0692; J1650; J1815; J2405; J3010; J3370; J3490; J7050; Q0162; S0028; U0003; U0005